=== PATIENT | female | born 1960 | race Caucasian/White ===

== ENCOUNTER → 2018-04-22 06:54 | Outpatient (CLI) | payer OTHER, SELFPAY ==
--- NOTE | 2018-04-22 06:58 | BI_ITS ---
MAMMOGRAPHY - BILATERAL SCREENING REASON FOR EXAM: Female, 58 years old. Routine annual screening examination. PERTINENT HISTORY: Aunt with breast cancer. TECHNIQUE: Digital bilateral breast rodri (3D mammographic acquisition) in the CC and MLO projections. 2-D mediolateral oblique (MLO) and craniocaudad (CC) views of both breasts were obtained. CAD: Full Field Digital Mammography with Computer Added Detection was performed. COMPARISON: Comparison is made with prior examination of September 01, 2015 and August 30, 2014. FINDINGS: Breast Composition: The breasts are heterogeneously dense, which may obscure small masses. There are no dominant masses or suspicious calcifications. Stable benign-appearing bilateral axillary lymph nodes. No other significant abnormalities are identified. There has been no significant change since the prior study. BI/SCREENING MAMM (CAD), BILAT IMPRESSION: Stable bilateral screening mammogram. Yearly follow-up mammogram recommended. (A) ASSESSMENT CATEGORY: BIRADS Category 2: Benign. A letter regarding these results will be sent to the patient by the facility within 30 days. Approximately 10% of breast cancers are not detected by mammography. A normal mammogram should not delay biopsy of a clinically suspicious abnormality. [id number] Electronically Signed: Eliceo López MD at 10:04 EDT Tel [phone], Service support ,
== END ==
PROVIDERS: Family Provider Physician Assistant; PCP Physician Assistant; Visit Provider Physician Assistant
DX: Z12.31 Encounter for screening mammogram for malignant neoplasm of breast (principal)
CPT/HCPCS: 77063; 77067

== ENCOUNTER 2020-05-05 12:13 | Day surgery (SDC) | payer OTHER, SELFPAY ==
[2020-04-12 10:00] VITALS: BMI 32.7
--- NOTE | 2020-05-04 19:30 | HP.PCM_ITS ---
History and Physical Date of Admission: 05/05/20 HISTORY OF PRESENT ILLNESS 60 year old woman presents with a lesion left lateral lower eyelid that has been increasing in size over the last several months and has become more raised in configuration and has developed irregular borders. It is located near the eyelid margin, and it creates shadows in her visual field and interferes with her vision. She denies fever. She denies drainage. She denies trauma. She presents at this time for further evaluation and treatment. PAST MEDICAL HISTORY GERD (gastroesophageal reflux disease) Thyroid disease PAST SURGICAL HISTORY right hip replacement thyroidectomy ALLERGIES No Known Allergies MEDICATIONS Omeprazole [Prilosec] Thyroid,Pork [[place] Thyroid] FAMILY HISTORY Mother - Cancer, Cervical cancer Father - Cancer Other - Arthritis, Thyroid disorder SOCIAL HISTORY Smoking Status: Never smoker REVIEW OF SYSTEMS General - Denies fever, fatigue, and weight loss. Eyes - Denies cataracts and glaucoma. ENT - Denies nasal congestion and sore throat. Endocrine - Denies excessive thirst and urination. Has thyroid disease. Skin - Denies skin cancer. Has enlarging lesion left lateral lower eyelid near the eyelid margin. Musculoskeletal - Denies joint pain, joint stiffness, weakness of muscles and joints, back pain, and arthritis. Neuro - Denies headaches. Cardiovascular - Denies chest pain, fatigue, and shortness of breath with exertion. Psych - Denies anxiety and depression. Respiratory - Denies chronic cough and shortness of breath. Gastrointestinal - Denies nausea, vomiting, diarrhea, and constipation. Hematologic - Denies abnormal bruising and bleeding. Genitourinary - Denies hematuria and urinary frequency. PHYSICAL EXAMINATION General - Alert and Oriented. HEENT - PERRL. EOMI. Throat is clear. On the left lateral lower eyelid is a 5 mm lesion that is raised in configuration. Has irregular borders. Located near the eyelid margin. No evidence of scleral show or ectropion at this time. Good snap back test of lower eyelid. No ulceration. Lesion is nontender. No other suspicious lesions noted. Neck - Supple and nontender. No cervical adenopathy. No suspicious lesions noted. Lungs - Clear to auscultation. Heart - Regular rate and rhythm. Abdomen - Soft and nondistended. Extremities - FROM. No axillary adenopathy. Radial pulses are palpable. No suspicious lesions noted. Neuro - CN II-XII grossly intact. Psych - Normal mood and affect. ASSESSMENT 5 mm lesion left lateral lower eyelid near the eyelid margin. PLAN Recommend excision of this lesion left lateral lower eyelid near the eyelid margin and send it to Pathology for analysis to rule out carcinoma. Because of its proximity to the eyelid margin, reconstruction may be with a skin graft or skin flap. The donor site would be the upper lateral eyelid. If carcinoma is present, then full thickness excision would be done including the eyelid margin with complex eyelid reconstruction that may necessitate a lateral canthal advancement flap and canthoplasty. Surgery will be done on an outpatient basis under local anesthesia and IV sedation or general anesthesia. Patient was informed of the risks and complications of the procedure including alternatives to surgery. These were discussed with the patient personally. Patient voices understanding and wishes to proceed. Some of the risks and complications were included in a form from the [employer] [employer]. We discussed the current risks associated with COVID-19. While it is understood that there is a community spread of COVID-19, the risk of gilbert COVID-19 while at [facility] ([facility]) is very low; however, the risk cannot be completely mitigated because of the community spread of the disease. We discussed in detail the risk of exposure to and/or potential harm posed by the COVID-19 virus with having a surgery/procedure at this time versus the risk of delaying the surgery/procedure. It is not possible to know either the risk of delaying the surgery or procedure or chance of getting an infection with perfect accuracy, but a joint decision was made to proceed at this time with the scheduled surgery/procedure as indicated on the consent form. Patient was notified that we will need to comply with any screening or testing [facility] wishes to perform or that surgery may be delayed for any positive results. Discussed with the patient that I was tested for COVID-19 on 03/23/20 which was negative and on 04/06/20 which was negative and on 04/20/20 which was negative. My testing regimen at this time is to be COVID-19 tested every 2 weeks or so. I was recently tested on 05/04/20, and that test is pending. Procedure Criteria Procedure Type: Elective COVID Risk Discussion: The surgeon/proceduralist and patient have discussed in detail the risk of exposure to and/or potential harm posed by the COVID-19 virus with having a surgery/procedure at this time versus the risk of delaying the surgery/procedure. It is not possible to know either the risk of delaying the surgery or procedure or chance of getting an infection with perfect accuracy, but a joint decision was made between the patient and the surgeon/proceduralist to proceed at this time with the scheduled surgery/procedure as indicated on the consent form.
[2020-05-05] VITALS (7 sets, daily range): BP systolic 107–145; BP diastolic 59–92; PULSE 69–74; RESP 15–16; TEMP 36.3–37.4; O2SAT 96–100; BMI 35.5
--- NOTE | 2020-05-05 | LES_PTH ---
PATIENT: PAT AMIN LOC: [facility] [place] U#:[id number] AGE/SX: 60/F ROOM: RE05/05/[address]: Dr. Hebert Quiroz MD : 1960 BED: DIS: 05/05/2020 SPEC #: [id number] RECD: 05/05/20 14:27 STATUS: GUERA AMBER #: [id number] MILADYS: 05/05/20 00:[address]: Hebert Quiroz DEPT: SURGICAL PATHOLOGY RECD BY: Lynn Gonzalez ENTERED: 05/08/20 07:43 SP TYPE: Lesion OTHR DR: MARIBEL Enriquez Tissues: Skin of eyelid, NOS Procedures: Frozen Section (charge) Surgery Specimen Level IV HEADER OPERATION: Excision lesion lower eyelid, skin flap, frozen section PRE-OP DIAGNOSIS: 5 mm lesion left lateral lower eyelid near the eyelid margin TISSUE SUBMITTED: Lesion left lateral lower eyelid near eyelid margin, suture at 10 o'clock, FS at 1424 FROZEN SECTION DIAGNOSIS Lesion, left lateral lower eyelid, near the eyelid margin, excision: Seborrheic keratosis. IVAN:polly 05/08/20 MICROSCOPIC DIAGNOSIS Lesion left lateral lower eyelid, near eyelid margin, excision: Consistent with seborrheic keratosis. IVNA:polly 05/08/20 MICROSCOPIC DESCRIPTION Slides are reviewed. GROSS DESCRIPTION Received fresh for frozen section diagnosis labeled with the patient's name is a specimen designated lesion left lateral lower eyelid near eyelid margin. The specimen consists of a piece of cortes-brown skin measuring 0.7 x 0.4 x 0.2 cm. The specimen is oriented by a suture at 12 o'clock. The specimen is inked as follows: 12 o'clock half - black and 6 o'clock half - blue. The specimen is bisected and submitted entirely for frozen section diagnosis in one cassette. / IVAN:polly 05/05/20 TC:1 CPT: 63550, 37168
[2020-05-05] MEDS: Lactated Ringers 1,000 ML 100 ML IV (12:59)
[2020-05-05] MEDS: Mupirocin Ointment 22gm Tube 1 APPLIC (15:00)
--- NOTE | 2020-05-05 15:13 | OP.PCM_ITS ---
Report of Operation Date of Procedure: 05/05/20 Pre-Operative Diagnosis: 5 mm lesion left lateral lower eyelid near the eyelid margin. Post-Operative Diagnosis: Same. Surgery/Procedure Performed:: Excision 5 mm lesion left lateral lower eyelid near the eyelid margin with inferior advancement skin flap reconstruction (1.19 cm2). Description of Surgical Findings:: 60 year old woman presents with a lesion left lateral lower eyelid that has been increasing in size over the last several months and has become more raised in configuration and has developed irregular borders. It is located near the eyelid margin, and it creates shadows in her visual field and interferes with her vision. She denies fever. She denies drainage. She denies trauma. Patient was informed of the risks and complications of the procedure including alternatives to surgery. These were discussed with the patient personally. Patient voices understanding and wishes to proceed. Some of the risks and complications were included in a form from the [place] [employer]. Frozen section left lateral lower eyelid near the eyelid margin - seborrheic keratosis and no carcinoma seen. 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 Specimen's removed: Lesion left lateral lower eyelid near the eyelid margin to Pathology as a frozen section. Drains: None. Estimated Blood Loss (mL): 2 ml. Description of Procedure: Patient was taken to OR in supine position and was given IV sedation. The left side of the face was prepped and draped in the usual fashion. SCD's were placed for DVT prophylaxis. Perioperative antibiotics were given intravenously. For the procedure, I wore an N95 mask and wore proper eyewear protection. The lesion left lateral lower eyelid was infiltrated with xylocaine and epinephrine. After waiting 5 minutes for the anesthetic to take effect, I excised the lesion with a 1 mm margin in all directions thus making it a 7 mm excision. A full thickness excision was done because there was a cutaneous horn component to this lesion. If carcinoma is present, it is in the base and a shave excision can miss it. A suture was placed at 12 oclock position for pathology orientation. The lesion was sent to Pathology as a frozen section for analysis to rule out carcinoma. Frozen section showed it was a seborrheic keratosis and no evidence of malignancy. The defect was very close to the eyelid margin. I tried primary closure with 5-0 fast absorbing suture. Distortion was seen on the lower eyelid with some scleral show which would increase the risk of developing postop ectropion. The defect was 0.7 x 0.7 cm. I mobilized an inferior skin flap with a length of 1 cm. I elevated the skin flap at the level of the underlying muscle. I included a small amount of muscle with the flap to help with vascularity of the flap. Hemostasis was obtained with electrocautery. I advanced the skin flap superiorly to close the defect. I used 5-0 fast absorbing interrupted sutures for the closure. There was no distortion of the lower eyelid seen. The size of the defect and the size of the flap required to close the defect was 1.19 cm2. Steri-strips were applied followed by antibiotic ointment. Patient tolerated the procedure well and was sent to PACU in satisfactory condition. Patient will be sent home on antibiotics and pain medication. She will keep her head elevated during the initial postoperative period. Patient will followup in a week for a wound check and for discussion of the pathology report. She will apply cold compresses for periorbital swelling. Grafts/Implants Used: None. - Complications None. - Admit VTE Documentation VTE Present on Admission: No VTE Mechan Device Prophylaxis: SCD's VTE Pharm Prophylaxis ordered?: No Surgery Charges CPT - 74878 ICD-10 - D49.2, L82.1
--- NOTE | 2020-05-05 15:21 | DCINST_ITS ---
You will use the following diet at home:: No restrictions Discharge Activity: May not drive while taking narcotic pain medications., May Shower - in two days., - - no heavy lifting. keep head elevated. apply cold compresses as needed for periorbital swelling. May shower in (days): 2 May resume sexual activity in: No Restrictions Ice area for (Minutes): 5 - as needed for periorbital swelling. Weight Bearing Status: Weight bearing as tolerated Lifting Restrictions: 10 lbs. Keep extremity elevated above heart level: - - elevate head. Call your doctor if your incision/area has: Continuous Slow Oozing, Sudden Increased Bleeding, Increased Pain/ Swelling, Increased Redness, Foul Smelling Discharge, Swelling at the incision site Call your doctor if you observe: Fever of 101 or Higher, Coldness, Increased Pain, Shortness of breath, Chest pain, Calf discomfort, Uncontrolled pain Suture Line Care: - - apply antibiotic ointment to suture line daily over the steri-strips Cleanse incision/area with: - - may get incision wet in the shower in two days. Allergies/Adverse Reactions: Allergies No Known Allergies Allergy (Unverified 05/05/20 12:43) Medications to take at Discharge Thyroid,Pork [[place] Thyroid] 90 mg PO MOTUWETHFR 01/09/15 [place] Thyroid 60 mg PO SUSA 04/28/20 Calcium/D3/Zinc/Copper/Luanne [Citracal-D3 Maximum Plus Caplt] 1 ea PO DAILY 04/28/20 Esomeprazole Magnesium [Nexium 24Hr] 20 mg PO 1500 04/28/20 Clindamycin HCl [Cleocin] 300 mg PO TID #12 cap 05/05/20 Lactobacillus Acidophilus/Fos [Acidophilus Probiotic Tablet] 1 ea PO BID #10 tab 05/05/20 Oxycodone HCl/Acetaminophen [Percocet 5/325] 1 tablet PO Q6H PRN PRN 4 Days #15 tablet 05/05/20 The following prescriptions were given: Lactobacillus Acidophilus/Fos [Acidophilus Probiotic Tablet] 1 ea PO BID #10 tab Transmission Status: Pending to [facility] Clindamycin HCl [Cleocin] 300 mg PO TID #12 cap Transmission Status: Pending to [facility] Oxycodone HCl/Acetaminophen [Percocet 5/325] 1 tablet PO Q6H PRN PRN 4 Days #15 tablet PRN Reason: Pain Score 4-5/10 Transmission Status: Received by [facility] Primary Care Physician: Delfino Jameson PA [Primary Care Provider] - Test Results: Test results from this visit will be discussed in further detail at your follow- up appointment, if applicable. Please Follow Up With: Hebert Quiroz MD When: one week. call [phone] for appt. Proposed Discharge Date: 05/05/20
== END 2020-05-05 16:05 | disposition home or self-care (01) ==
LOC: SDC 12:13 → AC 12:15
PROVIDERS: PCP Physician Assistant; Referring Provider Surgery; Visit Provider Surgery
PROC: (CPT 14060; principal; 2020-05-05 13:45)
DX: L82.1 Other seborrheic keratosis (principal); K21.9 Gastro-esophageal reflux disease without esophagitis; E06.9 Thyroiditis, unspecified; Z79.899 Other long term (current) drug therapy
CPT/HCPCS: 00300; 14060; 87635; 88305; 88331; 94799; J7120; U0003

== ENCOUNTER 2020-12-01 10:01 | Outpatient (RCR) | payer OTHER, SELFPAY ==
[2020-05-25 15:37] VITALS: BMI 35.5
[2020-12-01] MEDS: COVID-19 VACC, MRNA(PFIZER)/PF 30 MCG/0.3 ML SYRINGE IM (16:10)
[2020-12-22] MEDS: COVID-19 VACC, MRNA(PFIZER)/PF 30 MCG/0.3 ML SYRINGE IM (16:08)
== END 2020-12-01 23:59 ==
LOC: IMMUN 10:01
PROVIDERS: PCP Physician Assistant; Visit Provider Family Medicine
DX: Z23 Encounter for immunization (principal)
CPT/HCPCS: 0001A; 0002A; 91300

== ENCOUNTER → 2021-06-05 06:58 | Outpatient (CLI) | payer OTHER, SELFPAY ==
--- NOTE | 2021-06-05 07:12 | BI_ITS ---
MAMMOGRAPHY - BILATERAL SCREENING REASON FOR EXAM: Female, 61 years old. Routine annual screening examination. PERTINENT HISTORY: Non-contributory. TECHNIQUE: Digital bilateral breast cynthia (3D mammographic acquisition) in the CC and MLO projections. 2-D mediolateral oblique (MLO) and craniocaudad (CC) views of both breasts were obtained. CAD: Full Field Digital Mammography with Computer Added Detection was performed. COMPARISON: Comparison is made with prior study dated 04/22/2018 and 09/01/2015. FINDINGS: Breast Composition: The breasts are heterogeneously dense, which may obscure small masses. There are no dominant masses or suspicious calcifications. Stable benign-appearing bilateral axillary lymph nodes. Stable 5.8 mm well-defined nodule in the deep lateral upper aspect of the right breast suggestive of a small lymph node. No other significant abnormalities are identified. There has been no significant change since the prior study. BI/SCRN MAMM (CAD)W/CYNTHIA BILAT IMPRESSION: Stable bilateral screening mammogram. Yearly follow-up mammogram recommended. (A) ASSESSMENT CATEGORY: BIRADS Category 2: Benign. A letter regarding these results will be sent to the patient by the facility within 30 days. Approximately 10% of breast cancers are not detected by mammography. A normal mammogram should not delay biopsy of a clinically suspicious abnormality. [id number] Electronically Signed: Eliceo López MD at 8:19 EDT , Service support ,
== END ==
PROVIDERS: PCP Physician Assistant; Referring Provider Physician Assistant; Visit Provider Physician Assistant
DX: Z12.31 Encounter for screening mammogram for malignant neoplasm of breast (principal)
CPT/HCPCS: 77063; 77067

== ENCOUNTER → 2023-04-08 | Outpatient (CLI) | payer OTHER, SELFPAY ==
--- NOTE | 2023-04-08 07:04 | BI_ITS ---
MAMMOGRAPHY - BILATERAL SCREENING 3-D TOMOSYNTHESIS REASON FOR EXAM: Female, 63 years old. Routine screening PERTINENT HISTORY: Aunt with breast cancer.. TECHNIQUE: 2-D mammograms and 3-D Tomosynthesis of the breast (s) were performed. CAD was performed. COMPARISON: 04/22/2018, 06/05/2021 FINDINGS: The breast composition is heterogeneously dense that can obscure small breast masses. Scattered benign calcifications are seen. No dense spiculated masses or suspicious microcalcifications are identified. No architectural distortion is identified. There is no skin thickening or retraction. There has been no significant change since the prior study. BI/SCRN MAMM (CAD)W/CYNTHIA BILAT IMPRESSION: No mammographic signs of malignancy. Routine yearly mammograms recommended. ASSESSMENT CATEGORY: BIRADS Category 2: Benign. A letter regarding these results will be sent to the patient by the facility within 30 days. FOLLOW UP RECOMMENDATION: Yearly follow up mammogram recommended. (A) Approximately 10% of breast cancers are not detected by mammography. A normal mammogram should not delay biopsy of a clinically suspicious abnormality. Electronically Signed: Andrea Razo MD at 10:22 EDT ,
== END | disposition home or self-care (01) ==
LOC: OPBI 07:02
PROVIDERS: PCP Physician Assistant; Referring Provider Physician Assistant; Visit Provider Physician Assistant
DX: Z12.31 Encounter for screening mammogram for malignant neoplasm of breast (principal)
CPT/HCPCS: 77063; 77067

== ENCOUNTER → 2024-04-12 | Outpatient (CLI) | payer OTHER, SELFPAY ==
--- NOTE | 2024-04-12 08:21 | BI_ITS ---
MAMMOGRAPHY - BILATERAL SCREENING REASON FOR EXAM: Female, 64 years old. Routine annual screening examination. PERTINENT HISTORY: Aunt with breast cancer. TECHNIQUE: Digital bilateral breast cynthia (3D mammographic acquisition) in the CC and MLO projections. 2-D mediolateral oblique (MLO) and craniocaudad (CC) views of both breasts were obtained. CAD: Full Field Digital Mammography with Computer Added Detection was performed. COMPARISON: Comparison is made with prior study dated April 08, 2023 and June 05, 2021. FINDINGS: Breast Composition: The breasts are heterogeneously dense, which may obscure small masses. There are no dominant masses or suspicious calcifications. Stable 5.8 mm well-defined nodule in the deep lateral upper aspect of the right breast suggestive of a small lymph node. Stable benign-appearing bilateral axillary lymph nodes. No other significant abnormalities are identified. There has been no significant change since the prior study. BI/SCRN MAMM (CAD)W/CYNTHIA BILAT IMPRESSION: Stable bilateral screening mammogram. Yearly follow-up mammogram recommended. (A) ASSESSMENT CATEGORY: BIRADS Category 2: Benign. A letter regarding these results will be sent to the patient by the facility within 30 days. Approximately 10% of breast cancers are not detected by mammography. A normal mammogram should not delay biopsy of a clinically suspicious abnormality. [id number] Electronically Signed: Eliceo López MD at 9:31 EDT ,
== END | disposition home or self-care (01) ==
LOC: OPBI 08:19
PROVIDERS: PCP Physician Assistant; Referring Provider Physician Assistant; Visit Provider Physician Assistant
DX: Z12.31 Encounter for screening mammogram for malignant neoplasm of breast (principal); Z80.3 Family history of malignant neoplasm of breast
CPT/HCPCS: 77063; 77067